=== PATIENT | male | born 1950 | race Caucasian/White ===

== ENCOUNTER → 2017-03-08 | Outpatient (CLI) | payer OTHER | LOC: CIMAGING 08:51 | PROVIDERS: ATTEND Internal Medicine Hematology & Oncology | DX: R16.1 Splenomegaly, not elsewhere classified (principal) | CPT/HCPCS: 76705-PO ==

== ENCOUNTER 2017-08-19 19:58 | Emergency (ER) | payer OTHER ==
--- NOTE | 2017-08-19 20:30 | EDPHY ---
HPI/HX/ROS/PE/MDM Narrative: CHIEF COMPLAINT: Abnormal heart rate HPI: The patient is a 67 y/o male with a history of a cervical fusion and indolent splenic marginal lymphoma complaining of an abnormal heart rate today. While walking his dog this morning his heart rate spiked to 110 BPM. His heart rate returned to it's normal resting rate. Then, while sitting at the table later in the day, his heart rate spiked to 130 BPM. Denies chest pain or shortness of breath. In addition to the random increase in heart rate, he occasionally has a feeling of adrenaline in his joints. Last cardiac stress test was 10 years ago. No shortness of breath, abdominal pain, urinary or bowel complaints, numbness, paresthesias, fever. No familial history of CAD. REVIEW OF SYSTEMS: Aside from elements discussed in the HPI, a comprehensive 10-point review of systems was reviewed and is negative. PMH: Indolent splenic marginal lymphoma, Soler's esophagus, right knee replacement, neck fusion SOCIAL HISTORY: at bedside, lives in [facility] PHYSICAL EXAM: General: Patient is alert, in no acute distress. ENT: Eyes are normal to inspection. ENT inspection normal. Neck: Normal inspection. Full range of motion. Respiratory: No respiratory distress. Breath sounds normal bilaterally. Cardiovascular: Regular rate and rhythm. Strong peripheral pulses. Normal cap refill. Abdomen: The abdomen is nontender to palpation. There are no peritoneal signs. There are normal bowel sounds. Back: Normal to inspection. No tenderness to palpation. Skin: Normal color. No rash. Warm and dry. Extremities: Normal appearance. Full range of motion. Neuro: Oriented x3. Normal motor function. Normal sensory function. ED Course: 2044: EKG was ordered and interpreted by myself. Please see [email or web address] system for official reading. 2148: Patient's labs and chest x-ray are normal. 2149: I reassessed patient and discussed these findings. I have advised him to follow up with a pressure vessel inspector. Return precautions provided; patient is comfortable with this plan. MDM: This patient presents with periodic episodes of palpitations and elevated HR. He is currently asymptomatic with normal HR, normal ECG, normal troponin and other labs. He states this has been happening for approximately 10 years, so that is reassuring this does not represent VT or other life-threatening arrhyhthmia. I discussed options with him and he is comfortable with plan for discharge home tonight with referral to [facility] for further workup. We discussed strict return precautions. - Data Points Imaging Results: Imaging Impressions Chest X-Ray 08/19/17 20:44 Impression: No acute thoracic abnormality. Imaging: I viewed and interpreted images myself Laboratory Results: Laboratory Results 08/19/17 20:45 08/19/17 20:45 08/19/17 08/19/17 20:45 20:45 WBC 2.50 10^3/uL L 10^3/uL (3.80-9.50) RBC 5.22 10^6/uL 10^6/uL (4.40-6.38) Hgb 15.7 g/dL g/dL (13.7-17.5) Hct 45.9 % % (40.0-51.0) MCV 87.9 fL fL (81.5-99.8) MCH 30.1 pg pg (27.9-34.1) MCHC 34.2 g/dL g/dL (32.4-36.7) RDW 15.1 % % (11.5-15.2) Plt Count 285 10^3/uL 10^3/uL (150-400) MPV 9.4 fL fL (8.7-11.7) Neut % (Auto) 28.4 % L % (39.3-74.2) Lymph % (Auto) 47.6 % H % (15.0-45.0) [place]win % (Auto) 13.2 % H % (4.5-13.0) Eos % (Auto) 8.8 % H % (0.6-7.6) Baso % (Auto) 1.6 % % (0.3-1.7) Nucleat RBC Rel Count 0.0 % % (0.0-0.2) Absolute Neuts (auto) 0.71 10^3/uL L 10^3/uL (1.70-6.50) Absolute Lymphs (auto) 1.19 10^3/uL 10^3/uL (1.00-3.00) Absolute Monos (auto) 0.33 10^3/uL 10^3/uL (0.30-0.80) Absolute Eos (auto) 0.22 10^3/uL 10^3/uL (0.03-0.40) Absolute Basos (auto) 0.04 10^3/uL 10^3/uL (0.02-0.10) Absolute Nucleated RBC 0.00 10^3/uL 10^3/uL (0-0.01) Immature Gran % 0.4 % % (0.0-1.1) Immature Gran # 0.01 10^3/uL 10^3/uL (0.00-0.10) Sodium 140 mEq/L mEq/L (135-145) Potassium 4.3 mEq/L mEq/L (3.5-5.2) Chloride 103 mEq/L mEq/L (97-110) Carbon Dioxide 26 mEq/l mEq/l (22-31) Anion Gap 11 mEq/L mEq/L (8-16) BUN 21 mg/dL mg/dL (7-23) Creatinine 1.0 mg/dL mg/dL (0.7-1.3) Estimated GFR > 60 Glucose 101 mg/dL H mg/dL (70-100) Calcium 9.5 mg/dL mg/dL (8.5-10.4) Troponin I < 0.012 ng/mL ng/mL (0.000-0.034) Medications Given: Discontinued Medications Sodium Chloride (Ns) 1,000 mls @ 0 mls/hr IV EDNOW ONE; Wide Open PRN Reason: Protocol Stop: 08/19/17 20:45 Last Admin: 08/19/17 20:59 Dose: 1,000 mls General Time Seen by Provider: 08/19/17 20:29 Initial Vital Signs: Initial Vital Signs Temperature (C) 36.9 C 08/19/17 20:01 Heart Rate 83 08/19/17 20:01 Respiratory Rate 16 08/19/17 20:01 Blood Pressure 139/78 H 08/19/17 20:01 O2 Sat (%) 97 08/19/17 20:01 O2 Delivery Mode Room Air Allergies/Adverse Reactions: lactose Allergy (Verified 08/19/17 20:09) pectin Allergy (Verified 08/19/17 20:09) tree nut [Nuts] Allergy (Verified 08/19/17 20:09) Home Medications: Medication Instructions Recorded [facility] Reconciled 10/28/12 10/28/12 Diclofenac Sodium 08/19/17 Misoprostol 08/19/17 Omeprazole Magnesium 08/19/17 Departure - Departure Disposition: Home, Routine, Self-Care Clinical Impression: Palpitations Condition: Good Instructions: Heart Palpitations (ED) Additional Instructions: Follow-up with your primary doctor within 72 hours. Return to the Emergency Department for fever, chest pain, shortness of breath, increasing pain or other worsening of condition. Follow up with a pressure vessel inspector for further testing, as soon as possible, within one week. As we discussed, it is impossible to fully rule out heart disease as the cause of your chest pain in the emergency department. We would be happy to reevaluate you and observe you in the hospital at any time. Referrals: Melissa Coker MD [Primary Care Provider] - As per Instructions Henrik Mejia MD [Medical Doctor] - As per Instructions Report Scribed for: Danis Case Report Scribed by: Rosa M Vitale Date of Report: 08/19/17 Time of Report: 20:30 Physician Review and Approval Statement: Portions of this note were transcribed by an ED scribe. I personally performed the history, physical exam, and medical decision making; and confirm the accuracy of the information in the transcribed note.
[2017-08-19] MEDS ORDERED: NS 1,000 ML IV ONE (20:44)
--- NOTE | 2017-08-19 20:47 | CPEKG ---
Heart Rate: 68 RR Interval: 882 P-R Interval: 172 QRSD Interval: 96 QT Interval: 389 QTC Interval: 414 P [place]: 64 QRS [place]: -47 T Wave [place]: 33 EKG Severity - ABNORMAL ECG - EKG Impression: SINUS RHYTHM EKG Impression: PROBABLE LEFT ATRIAL ABNORMALITY EKG Impression: LEFT ANTERIOR FASCICULAR BLOCK Electronically Signed By: Marciano Meyer 20-Aug-2017 13:01:42
[2017-08-19 21:02] LABS: PLATELET COUNT 285 10^3/uL (150-400)
[2017-08-19 22:09] VITALS: BP 134/90; PULSE 79; RESP 20; TEMP 98.1; O2SAT 93
== END 2017-08-19 22:09 | disposition home or self-care (01) ==
DX: R00.2 Palpitations (principal); E86.9 Volume depletion, unspecified; Z85.72 Personal history of non-Hodgkin lymphomas

== ENCOUNTER 2017-12-18 21:24 | Emergency (ER) | payer OTHER ==
[2017-12-18 21:28] VITALS: BP 135/81
--- NOTE | 2017-12-18 22:48 | EDPHY ---
H & P Stated Complaint: dysuria Time Seen by Provider: 12/18/17 22:34 HPI/ROS: HPI The patient presents with dysuria, urinary frequency, nocturia which have been present for the last 3 days. Tonight, he developed some shaking chills and was concerned so comes into the emergency department. He has a history of prostatitis, though his last episode was 8-10 years ago. He also has a history of neutropenia related to his marginal lymphoma which is being monitored by his primary care doctor and his oncologist. He is not on any treatment for this currently. He has checked his temperature and has been afebrile. He has mild nausea without vomiting. He has had some diarrhea over the last few weeks which is improving. REVIEW OF SYSTEMS Constitutional: No fever, no chills. Eyes: No discharge. ENT: No sore throat. Cardiovascular: No chest pain, no palpitations. Respiratory: No cough, no shortness of breath. Gastrointestinal: No abdominal pain, no vomiting. Genitourinary: No hematuria. Musculoskeletal: No back pain. Skin: No rashes. Neurological: No headache. 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 Wagner, oncologist is Dr. Esdras George Hx: Lives locally PHYSICAL General Appearance: Alert, no distress Eyes: Pupils equal and round no pallor or injection ENT, Mouth: Mucous membranes moist Respiratory: There are no retractions, lungs are clear to auscultation Cardiovascular: Regular rate and rhythm Gastrointestinal: Abdomen is soft and non-tender, no masses, bowel sounds normal Back: Mild CVA tenderness bilaterally Neurological: A&O, moves all extremities Skin: Warm and dry, no rashes Musculoskeletal: Neck is supple non tender Extremities: symmetrical, full range of motion Psychiatric: Patient is oriented X 3, there is no agitation Source: Patient Exam Limitations: No limitations - Personal History Current Tetanus Diphtheria and Acellular Pertussis (TDAP): No - Medical/Surgical History Hx Asthma: No Hx Chronic Respiratory Disease: No Hx Diabetes: No Hx Cardiac Disease: No Hx Renal Disease: No Hx Cirrhosis: No Hx Alcoholism: No Hx HIV/AIDS: No Hx Splenectomy or Spleen Trauma: No Other PMH: medical, indolent splenic marginal lymphoma, rivas's esophagus. surgery right knee replacement, neck fusion - Social History Smoking Status: Former smoker Constitutional: Initial Vital Signs Temperature (C) 36.7 C 12/18/17 21:27 Heart Rate 98 12/18/17 21:27 Respiratory Rate 20 12/18/17 21:27 Blood Pressure 135/81 H 12/18/17 21:27 O2 Sat (%) 93 12/18/17 21:27 O2 Delivery Mode Room Air Allergies/Adverse Reactions: lactose Allergy (Verified 12/18/17 21:26) pectin Allergy (Verified 12/18/17 21:26) tree nut [Nuts] Allergy (Verified 12/18/17 21:26) Home Medications: Medication Instructions Recorded [facility] Reconciled 10/28/12 10/28/12 Diclofenac Sodium 08/19/17 Misoprostol 08/19/17 Omeprazole Magnesium 08/19/17 levOFLOXACIN [Levofloxacin] 750 mg PO DAILY #14 tablet 12/18/17 Medical Decision Making Differential Diagnosis: This is a 67-year-old man, immunocompromised due to neutropenia due to marginal cell lymphoma, being monitored by Oncology who presents with 3 days of urinary symptoms including dysuria, frequency, urgency, nocturia. He generally is not systemically ill, no fevers here, not vomiting. I suspect he is suffering from prostatitis as he has a history of this and is at risk with his neutropenia. He could also have pyelonephritis though I feel this is less likely. Cystitis is also a consideration. He is currently well- appearing, has no signs of sepsis. I will treat him with Levaquin for prostatitis, 14 day course. I will have him follow up with his primary care doctor. I have given him strict return precautions given his neutropenia. - Data Points Laboratory Results: 12/18/17 21:58 Urine Color YELLOW Urine Appearance MODERATELY TURBID Urine pH 6.0 (5.0-7.5) Ur Specific [place] 1.008 (1.002-1.030) Urine Protein NEGATIVE (NEGATIVE) Urine Ketones NEGATIVE (NEGATIVE) Urine Blood 2+ H (NEGATIVE) Urine Nitrate POSITIVE H (NEGATIVE) Urine Bilirubin NEGATIVE (NEGATIVE) Urine Urobilinogen NEGATIVE EU EU (0.2-1.0) Ur Leukocyte Esterase 3+ H (NEGATIVE) Urine RBC 15-25 /hpf H /hpf (0-3) Urine WBC 50-182 /hpf H /hpf (0-3) Ur Epithelial Cells NONE SEEN /lpf /lpf (NONE-1+) Urine Bacteria 2+ /hpf H /hpf (NONE SEEN) Urine Glucose NEGATIVE (NEGATIVE) Medications Given: Discontinued Medications Levofloxacin (Levaquin) 750 mg PO EDNOW ONE PRN Reason: Protocol Stop: 12/18/17 22:46 Last Admin: 12/18/17 22:54 Dose: 750 mg Departure - Departure Disposition: Home, Routine, Self-Care Clinical Impression: Prostatitis, History of neutropenia Condition: Good Instructions: Prostatitis (ED) Additional Instructions: With the antibiotic, you should be better in the next 24 hr. If you develop any fevers, vomiting, or worse in any way, I recommend he return to the emergency department for further care. We have sent a urine culture and if we find that the antibiotic we have prescribed you is not the right 1, we will call you at home. I would like for you to follow up with your primary care doctor in the next 2-3 days. Referrals: Melissa Coker MD [Primary Care Provider] - As per Instructions Prescriptions: levOFLOXACIN [Levofloxacin] 750 mg PO DAILY #14 tablet
== END 2017-12-18 23:00 | disposition home or self-care (01) ==
LOC: EEVIPCON 21:24
DX: N41.9 Inflammatory disease of prostate, unspecified (principal); B96.20 Unspecified Escherichia coli [E. coli] as the cause of diseases classified elsewhere; Z86.2 Personal history of diseases of the blood and blood-forming organs and certain disorders involving the immune mechanism; Z87.891 Personal history of nicotine dependence

== ENCOUNTER → 2018-07-15 | Outpatient (CLI) | payer OTHER ==
[~2018-07-15] MED LIST: GADOBUTROL 10 ML VIAL IVP ONE
== END ==
LOC: FIMAGING 12:59
PROVIDERS: ATTEND Physician Assistant
DX: M51.16 Intervertebral disc disorders with radiculopathy, lumbar region (principal); M51.37 Other intervertebral disc degeneration, lumbosacral region; M51.34 Other intervertebral disc degeneration, thoracic region; M51.35 Other intervertebral disc degeneration, thoracolumbar region; M48.07 Spinal stenosis, lumbosacral region; M50.323 Other cervical disc degeneration at C6-C7 level; M43.12 Spondylolisthesis, cervical region; M48.061 Spinal stenosis, lumbar region without neurogenic claudication; M43.16 Spondylolisthesis, lumbar region; Z98.1 Arthrodesis status
CPT/HCPCS: 72040; 72158; A9585; 82565-PO